=== PATIENT | male | born 1985 | race Caucasian/White ===

== ENCOUNTER 2024-02-04 09:34 | Emergency (ER) | payer BC ==
[~2024-02-04] VITALS: Ht 177.8 cm; Wt 88.5 kg
[2024-02-04] MEDS ORDERED: Sulfamethoxazole/Trimethopri 1 TAB TAB PO ONE (11:05)
[2024-02-04] MEDS ORDERED: Acetaminophen/Oxycodone 5 MG/325 MG TABLET PO ONE (11:05)
[2024-02-04] MEDS ORDERED: MELOXICAM15 MG PO (11:10)
[2024-02-04] MEDS ORDERED: SEPTDS PO (11:10)
== END 2024-02-04 11:40 | disposition home or self-care (01) ==
LOC: ED 09:34
DX: S39.011A Strain of muscle, fascia and tendon of abdomen, initial encounter (principal); L03.115 Cellulitis of right lower limb; X58.XXXA Exposure to other specified factors, initial encounter; Y93.89 Activity, other specified; Y92.89 Other specified places as the place of occurrence of the external cause; Y99.8 Other external cause status